=== PATIENT | female | born 1950 | race Caucasian/White ===

== ENCOUNTER 2019-03-17 14:50 | Emergency (ER) | payer MEDICAID, MEDICARE ==
--- NOTE | 2019-03-17 15:14 | EDM.PDOC ---
ED HPI GENERAL MEDICAL PROBLEM - General Chief Complaint: Cardiovascular Problem Stated Complaint: LOW BACK PAIN Time Seen by Provider: 03/17/19 15:03 Source of Information: Reports: Patient History Limitations: Reports: No Limitations - History of Present Illness INITIAL COMMENTS - FREE TEXT/NARRATIVE: HISTORY AND PHYSICAL: Dr Webb was directly involved in this case. History of present illness: Patient is a 68-year-old female who presents to the emergency room with complaints of mid back pain that radiates down bilateral lower extremities associated with weakness. She states the symptoms started approximately one hour ago and has progressively gotten more severe. She did take 2 tablets of a natural muscle relaxer as she does have chronic back pain. She states that this did not help alleviate any of her discomfort. The pain is now mid back and radiates to her umbilicus. States she is now to the point where she cannot move or feel from the umbilicus downward. Her daughter did call an ambulance as they were not able to get her up into the vehicle. She denies any injury, trauma or falls. Describes the back pain as sharp in burning sensation. Review of systems: As per history of present illness and below otherwise all systems reviewed and negative. Past medical history: As per history of present illness and as reviewed below otherwise noncontributory. Surgical history: As per history of present illness and as reviewed below otherwise noncontributory. Social history: See social history for further information Family history: As per history of present illness and as reviewed below otherwise noncontributory. Physical exam: General: Well-developed and well-nourished 68-year-old female. Alert and oriented. Appears to be in moderate distress due to back pain. Vital signs have been reviewed by me. HEENT: Atraumatic, normocephalic, pupils equal and reactive bilaterally, negative for conjunctival pallor or scleral icterus, mucous membranes moist, TMs normal bilaterally, throat clear, neck supple, nontender, trachea midline. No drooling or trismus noted. No meningeal signs. No hot potato voice noted. Lungs: Clear to auscultation, breath sounds equal bilaterally, chest nontender. Heart: S1S2, regular rate and rhythm without overt murmur Abdomen: Soft, nondistended, obese, nontender. Negative for masses. Negative for costovertebral tenderness. Pelvis: Stable nontender. Genitourinary: Deferred. Rectal: Unable to appreciate any rectal tone. She does have moderate amount of stool in the rectum. Negative Hemoccult stool. Skin: Intact, warm, dry. No lesions or rashes noted. C-spine/Back: Mid lumbar back pain, not elicited with palpation. No crepitus, step-offs or obvious deformities. States she is unable to have any sensation from the mid lumbar region down into the glutes. No urinary or fecal incontinence. Extremities: Atraumatic, moves upper extremities per self without difficulty or deficits. Patient is unable to move from the waist down including bilateral LE. Unable to resist against gravity. No sensation of bilateral LE from pelvis downward. See NOTES for details about pulses/circulation. Neuro: Awake, alert, oriented. Motor and sensory unremarkable of the upper extremities. Unable to appreciate any deep tendon reflexes of the lower extremities. She has no sensation when eliciting pain to the lower extremities, bilaterally. Notes: Lower extremities are cool to touch. Unable to Doppler any pedal or pretibial pulses. She does have faint femoral pulses bilaterally using the bedside Doppler. This was checked by myself and nursing staff. Unable to get MRI at our facility. Did talk with Dr. Nation at [facility] in [place], she is agreeable to accepting this patient for further evaluation and management. We'll fly this patient due to severity of symptoms and presentation. Did attempt to get a hold of the neurosurgeon at [facility]. The tram operator states he is unable to get a hold of him but will call me back if there are any further orders or recommendations prior to patient being transferred. Diagnostics: CBC, CMP, EKG, CXR, Troponin, Lumbar Spine MRI (not available/cancelled) Therapeutics: IV morphine, Zofran, Solu-Medrol, TKO fluids Impression: Cauda equina syndrome Plan: To [facility] in [place] via flight Definitive disposition and diagnosis as appropriate pending reevaluation and review of above. Middle Back Pain Score (Numeric/FACES): 25 - Related Data Home Meds: Home Meds Acetaminophen/HYDROcodone [[place] 325-5 MG] 1 tab PO ASDIRECTED PRN 03/17/19 [ History] Aspirin 4 tab PO DAILY 03/17/19 [History] Non-Formulary Medication [NF Drug] 03/17/19 [History] tiZANidine HCl [Tizanidine HCl] 1 tab PO ASDIRECTED PRN 03/17/19 [History] ED ROS GENERAL - Review of Systems Review Of Systems: ROS reveals no pertinent complaints other than HPI. ED EXAM, GENERAL - Physical Exam Exam: See Below (See dictation) Course - Vital Signs Last Recorded V/S: Last Vital Signs Temp 97.2 F 03/17/19 15:04 Pulse 79 03/17/19 15:04 Resp 24 H 03/17/19 15:04 BP 143/119 H 03/17/19 15:04 Pulse Ox 95 03/17/19 15:04 - Orders/Labs/Meds Orders: Active Orders 24 hr Category Date Time Status EKG 12 Lead [EKG Documentation Completion] [RC] STAT Care 03/17/19 15:04 Active Chest 1V Frontal [CR] Stat Exams 03/17/19 15:15 Ordered Lumbar Spine Comp wo Cont [MR] Stat Exams 03/17/19 15:15 Ordered CBC WITH AUTO DIFF [HEME] Stat Lab 03/17/19 15:14 Ordered COMPREHENSIVE METABOLIC PN,CMP [CHEM] Stat Lab 03/17/19 15:15 Ordered Sodium Chloride 0.9% [Saline Flush] Med 03/17/19 15:15 Ordered 10 ml FLUSH ASDIRECTED PRN Sodium Chloride 0.9% [Saline Flush] Med 03/17/19 15:15 Ordered 2.5 ml FLUSH ASDIRECTED PRN Saline Lock Insert [OM.PC] Stat Oth 03/17/19 15:15 Ordered Medication Orders Sodium Chloride (Saline Flush) 10 ml FLUSH ASDIRECTED PRN PRN Reason: Keep Vein Open Sodium Chloride (Saline Flush) 2.5 ml FLUSH ASDIRECTED PRN PRN Reason: Keep Vein Open Meds: Medications Generic Name Dose Route Start Last Admin Trade Name Freq PRN Reason Stop Dose Admin Sodium Chloride 10 ml 03/17/19 15:15 Saline Flush FLUSH ASDIRECTED PRN Keep Vein Open Sodium Chloride 2.5 ml 03/17/19 15:15 Saline Flush FLUSH ASDIRECTED PRN Keep Vein Open Discontinued Medications Generic Name Dose Route Start Last Admin Trade Name Freq PRN Reason Stop Dose Admin Methylprednisolone Sodium Succinate 125 mg 03/17/19 15:15 Solu-Medrol IVPUSH 03/17/19 15:16 ONETIME ONE Departure - Departure Time of Disposition: 15:41 Disposition: DC/Tfer to Acute Hospital 02 Reason for Transfer *Q: Primary PCI Indicated Condition: Undetermined Clinical Impression: Cauda equina syndrome Forms: ED Department Discharge - My Orders Last 24 Hours: My Active Orders 03/17/19 15:04 EKG 12 Lead [EKG Documentation Completion] [RC] STAT 03/17/19 15:14 CBC WITH AUTO DIFF [HEME] Stat 03/17/19 15:15 Chest 1V Frontal [CR] Stat Lumbar Spine Comp wo Cont [MR] Stat COMPREHENSIVE METABOLIC PN,CMP [CHEM] Stat Sodium Chloride 0.9% [Saline Flush] 10 ml FLUSH ASDIRECTED PRN Sodium Chloride 0.9% [Saline Flush] 2.5 ml FLUSH ASDIRECTED PRN Saline Lock Insert [OM.PC] Stat - Assessment/Plan Last 24 Hours: My Active Orders 03/17/19 15:04 EKG 12 Lead [EKG Documentation Completion] [RC] STAT 03/17/19 15:14 CBC WITH AUTO DIFF [HEME] Stat 03/17/19 15:15 Chest 1V Frontal [CR] Stat Lumbar Spine Comp wo Cont [MR] Stat COMPREHENSIVE METABOLIC PN,CMP [CHEM] Stat Sodium Chloride 0.9% [Saline Flush] 10 ml FLUSH ASDIRECTED PRN Sodium Chloride 0.9% [Saline Flush] 2.5 ml FLUSH ASDIRECTED PRN Saline Lock Insert [OM.PC] Stat
[2019-03-17] MEDS ORDERED: Sodium Chloride 0.9% 10 ML Syringe FLUSH PRN (15:15)
[2019-03-17] MEDS ORDERED: methylPREDNISolone Sodium Succinate 125 MG/2 ML SDV IVPUSH ONE (15:15)
[2019-03-17] MEDS ORDERED: Sodium Chloride 0.9% 2.5 ML Syringe FLUSH PRN (15:15)
[2019-03-17] MEDS ORDERED: Morphine 4 MG/ML Syringe IVPUSH ONE (15:31)
[2019-03-17] MEDS ORDERED: Morphine 4 MG/ML Syringe ONE (15:33)
[2019-03-17] MEDS ORDERED: fentaNYL 100 MCG/2 ML SDV ONE (15:51)
--- NOTE | 2019-03-17 15:54 | CR ---
HISTORY: Back pain. TECHNIQUE: One view of the chest. COMPARISON: No prior. FINDINGS: Cardiac size is within normal limits. There is no acute lung infiltrate or pulmonary edema. No pneumothorax or pleural effusion. IMPRESSION: No acute disease. Dictated by Dung Alvarado MD @ 03/17/2019 3:52:04 PM Dictated by: Dung Alvarado MD @ 03/17/2019 15:52:05 (Electronically Signed)
== END 2019-03-17 16:05 ==
LOC: MW.ED 14:50
DX: G83.4 Cauda equina syndrome (principal); Z79.82 Long term (current) use of aspirin
CPT/HCPCS: 36415; 71045; 80053; 84484; 85025; 93005; 96374; 96375; 99285; J2270; J2930; J3010